=== PATIENT | male | born 1945 | race Hispanic/Latino ===

== ENCOUNTER 2022-06-17 16:50 | Emergency (ER) | payer MEDICARE ==
[~2022-06-17] VITALS: Ht 175.3 cm; Wt 88.5 kg
[2022-06-17] MEDS: SODIUM CHLORIDE 0.9% 1000ML 1,000 ML IV STA (17:30)
[2022-06-17 17:46] LABS: BASOPHILS # (AUTO) 0.1 (0.0-0.1); BASOPHILS % 1.6 % (0.0-1.0); EOSINOPHILS # (AUTO) 0.3 (0.0-0.4); EOSINOPHILS % 6.1 % (0.0-6.0); HEMATOCRIT 35.2 % (38.2-49.6); HEMOGLOBIN 11.2 g/dL (14.0-18.0); LYMPHOCYTES # (AUTO) 1.4 (1.0-3.2); LYMPHOCYTES % 26.6 % (18.0-39.1); MEAN CORPUSCULAR HEMOGLOBIN 32.6 pg (28-32); MEAN CORPUSCULAR HGB CONC 31.8 g/dL (31-35); MEAN CORPUSCULAR VOLUME 102.3 fL (81-99); MONOCYTES # (AUTO) 0.5 (0.2-0.8); MONOCYTES % 9.1 % (4.4-11.3); NEUTROPHILS # (AUTO) 2.7 (2.1-6.9); NEUTROPHILS % 52.9 % (38.7-80.0); PLATELET COUNT 289 x10e3/uL (140-360); RED BLOOD COUNT 3.44 x10e6/uL (4.3-5.7); RED CELL DISTRIBUTION WIDTH 14.1 % (11.7-14.4)
[2022-06-17 18:13] LABS: ALBUMIN 3.1 g/dL (3.5-5.0); ANION GAP 15.5 mmol/L (8-16); CALCIUM 7.9 mg/dL (8.4-10.2); CREATININE, SERUM 1.52 mg/dL (0.72-1.25); POTASSIUM 3.5 mmol/L (3.5-5.1)
[2022-06-17 18:20] LABS: CREATINE KINASE MB 2.8 ng/mL (0-5.0)
[2022-06-17] MEDS ORDERED: IOPAMIDOL 370 MG/ML 100 ML INFUS..BTL INJ ONE (18:32)
[2022-06-17] MEDS ORDERED: PEPCID20 MG PO (20:31)
[2022-06-17 20:53] LABS: CLARITY,URINE CLEAR (CLEAR); COLOR,URINE YELLOW (YELLOW); KETONES,URINE NEGATIVE (NEGATIVE); LEUKOCYTE ESTERASE ,URINE NEGATIVE (NEGATIVE); NITRITE,URINE NEGATIVE (NEGATIVE); PROTEIN,URINE DIPSTICK NEGATIVE (NEGATIVE); URINE UROBILINOGEN 0.2 mg/dL (0.2 - 1)
[2022-06-17 21:06] LABS: BACTERIA,URINE FEW /HPF; RBC,URINE 0-5 /HPF (0-5)
== END 2022-06-17 20:50 | disposition home or self-care (01) ==
LOC: ER 16:59
DX: R10.9 Unspecified abdominal pain (principal); R03.1 Nonspecific low blood-pressure reading
CPT/HCPCS: 36415; 74177; 80053; 81001; 82550; 82553; 83690; 84484; 85025; 99284; J7030; Q9967; 93005

== ENCOUNTER → 2024-09-28 | Day surgery (SDC) | payer MEDICARE ==
[2024-09-20 11:39] LABS: BASOPHILS % 0.2 % (0.0-1.0); EOSINOPHILS % 0.6 % (0.0-6.0); HEMOGLOBIN 10.7 g/dL (14.0-18.0); MEAN CORPUSCULAR HEMOGLOBIN 29.6 pg (28-32); MEAN CORPUSCULAR HGB CONC 32.4 g/dL (31-35); MEAN CORPUSCULAR VOLUME 91.2 fL (81-99); MONOCYTES # (AUTO) 0.4 (0.2-0.8); MONOCYTES % 6.7 % (4.4-11.3); NEUTROPHILS # (AUTO) 3.9 (2.1-6.9); PLATELET COUNT 157 x10e3/uL (140-360); RED BLOOD COUNT 3.62 x10e6/uL (4.3-5.7); RED CELL DISTRIBUTION WIDTH 14.9 % (11.7-14.4); WHITE BLOOD COUNT 5.39 x10e3/uL (4.8-10.8)
[~2024-09-28] MED LIST: ALFUZOSIN HCL10 MG PO; ATORVASTATIN CA20 MG PO; CARVEDILOL3.125 MG PO; FINASTERIDE5 MG PO; FUROSEMIDE40 MG PO; GEMTESA75 MG PO; GLYCOPYRROLATE INJ 0.2 MG/ML VIAL ONE; LIDOCAINE HCL 2% LOCAL INJ 5 ML SDV VIAL INJ ONE; LINZESS145 MCG PO; METFORMIN HCL500 M2 PO; NEURONTIN300 MG PO; PEPCID20 MG PO; PROPOFOL IV EMULSION 10 MG/ML 20 ML VIAL ONE; TRAZODONE HCL50 MG PO; VITAMIN D3 MA125 MCG PO
[2024-09-28] MEDS: LACTATED RINGER'S 1,000 ML ONE (07:39)
[2024-09-28 09:01] VITALS: TEMP 97.1
[2024-09-28 09:20] VITALS: BP 136/81; PULSE 55; RESP 18; O2SAT 96
== END | disposition home or self-care (01) ==
LOC: OR 06:49
PROVIDERS: ATTEND Internal Medicine Gastroenterology
DX: K29.50 Unspecified chronic gastritis without bleeding (principal); Z71.3 Dietary counseling and surveillance; R63.0 Anorexia; E11.9 Type 2 diabetes mellitus without complications; Z78.9 Other specified health status; I45.10 Unspecified right bundle-branch block; I44.4 Left anterior fascicular block; E78.5 Hyperlipidemia, unspecified; Z01.810 Encounter for preprocedural cardiovascular examination; Z01.812 Encounter for preprocedural laboratory examination; Z79.84 Long term (current) use of oral hypoglycemic drugs; Z79.899 Other long term (current) drug therapy; Z68.29 Body mass index [BMI] 29.0-29.9, adult
CPT/HCPCS: 36415; 43239; 85025; 88305; 88342; 93005; J2003; J2704; J7121